=== PATIENT | male | born 1990 | race Caucasian/White ===

== ENCOUNTER 2022-05-25 04:20 | Emergency (ER) | payer BC, SELFPAY ==
[2022-05-25 04:38] VITALS: BP 104/77; PULSE 84; RESP 20; TEMP 37.2; O2SAT 95; BMI 33.9
[2022-05-25 04:56] LABS: COVID-19 Test Negative (Negative); IDNOW Serial# 16C4AD1C
== END 2022-05-25 07:41 | disposition left against medical advice (07) ==
PROVIDERS: Emergency Provider Emergency Medicine
DX: M54.2 Cervicalgia (principal); R07.0 Pain in throat; Z20.822 Contact with and (suspected) exposure to COVID-19
CPT/HCPCS: 87635; 99281; 99282

== ENCOUNTER 2023-05-02 11:49 | Emergency (ER) | payer SELFPAY ==
--- NOTE | 2023-05-02 12:17 | ED.GENADULT ---
HPI - General Adult General Chief complaint: Wound/Laceration Stated complaint: needs stitches Time Seen by Provider: 05/02/23 13:44 Source: patient Mode of arrival: ambulatory Limitations: no limitations History of Present Illness HPI narrative: 32 year old male w/ no significant pmhx presents to the ER today with a laceration of his right pointer finger from a clean knife while working on his vehicle. He states he is up to date on his tetanus shot. No concern for a crush injury. He states he was able to control the bleeding. Denies the use of blood thinners, LOC, or a head strike. complaint: finger laceration Onset (ago): hour(s) Location: right (pointer finger) Pain Consistency: constant Treatments prior to arrival: none Related Data Allergies Allergy/AdvReac Type Severity Reaction Status Date / Time No Known Allergies Allergy Mild NOT Unverified 05/02/23 12:21 APPLICABLE Review of Systems Review of Systems: Yes all other systems are reviewed and are negative PMFSH Social History Social History Advance Directives: No Advance Directives Information Provided: Yes Physical Exam ED Vital Signs: Vital Signs - 24 hr 05/02/23 12:18 05/02/23 13:54 Temperature 97.8 F 98.1 F Pulse Rate 66 64 Respiratory Rate 18 16 Blood Pressure 117/73 110/79 Pulse Oximetry 97 97 Oxygen Delivery Method Room Air Room Air BMI result Body Mass Index 32.5 Appearance: Alert. Oriented X3. No acute distress. Head: normocephalic, atraumatic. Eyes: Pupils equal, round and reactive to light. Neck: Normal visual inspection. Respiratory: No respiratory distress. Skin: (+) laceration of the right pointer finger over the PIP appox. 2cm in size. Skin warm and dry. Normal skin color. Normal skin turgor. No rashes. Extremities:(+) ROM of the right second digit. Normal inspection otherwise of extremities. No lower extremity edema. No joint swelling. Neuro/psych: Oriented X 3. No motor deficit. No sensory deficit. CN II-XII intact. Normal speech and cognition. Course Course Course Narrative: 32-year-old male presents for evaluation of a laceration to the dorsal surface of his right 2nd finger. Reports he believes his tetanus is up-to-date. Laceration was with a knife accidentally. Procedures Laceration Laceration 1: Site: other (right second digit) Side (If applicable): right Size (cm): 2 Description: linear Depth: simple, single layer Local Anesthetic: lidocaine 1% Amount of anesthesia used (mL): 8 Pre-repair: irrigated extensively Skin layer closed with: nylon Size (cm): 4-0 Number of sutures: 3 Technique: simple, interrupted Nerve Block Nerve Block 1: Time out performed: Yes (245) Local Anesthetic: lidocaine 1% Amount of anesthesia used (mL): 8 Side: right Nerve Blocks: digital (right second digit) Procedure Successful: Yes Patient Tolerated Procedure: well Complications: none Medical Decision Making Medical Decision Making MDM Narrative: 32 year old male w/ no significant pmhx presents to the ER today with a laceration of his right pointer finger from a clean knife while working on his vehicle. On exam his VSS, NAD, and bleeding controlled. Likely a simple superficial laceration of the right second digit. Unlikely an open fracture as no concerning signs/symptoms, no signs of tendon involvement d/t preserved ROM, and unlikely a deep laceration. patient tolerated wound repair well. no complications. wound care d/w pt. stable for d/c home. Differential Diagnosis Differential Diagnoses: The differential diagnosis associated with the presentation includes Deep laceration, tendon involvement, open fracture Tests considered The following testing was considered but not selected: X-ray of the digit, however, patient denies trauma/injury, so minimal concern for fracture Prescription Management I considered prescription management with: Pain Medication and Antibiotic Critical Care Time Critical Care Time Critical Care Time: No Discharge Plan Discharge Clinical Impression: Finger laceration Patient Disposition: Home, Self-Care Instructions: Finger Laceration (ED) Additional Instructions: You will need your stitches out in 7 days. See you doctor for this or come back to the ER and we will remove them. Do not get wet for 24 hours, after that you can briefly wash with soap and water then pat dry. Allow open to air for several hours per day if able. Keep wound clean and covered. Do not submerge in water, no swimming. If you develop signs of infection including increased pain, swelling, redness or drainage of pus come back to the ER for further evaluation. Interventions: ED Discharge Assessment Last Done: 05/02/23 15:07 Discharge Date/Time: 05/02/23 15:08
[2023-05-02 12:18] VITALS: BP 117/73; PULSE 66; RESP 18; TEMP 36.6; O2SAT 97; BMI 32.5
[2023-05-02 13:54] VITALS: BP 110/79; PULSE 64; RESP 16; TEMP 36.7; O2SAT 97
== END 2023-05-02 15:08 | disposition home or self-care (01) ==
PROVIDERS: Emergency Provider Emergency Medicine Emergency Medical Services; PCP Internal Medicine
DX: S61.210A Laceration without foreign body of right index finger without damage to nail, initial encounter (principal); W26.0XXA Contact with knife, initial encounter; Y93.9 Activity, unspecified; Y92.9 Unspecified place or not applicable; Y99.9 Unspecified external cause status
CPT/HCPCS: 12001; 99283